=== PATIENT | male | born 1935 | race Caucasian/White ===

== ENCOUNTER 2016-07-24 08:14 | Outpatient (CLI) | payer MEDICARE, BC ==
[2012-05-23 09:22] VITALS: BP 148/75
== END 2016-07-24 08:15 ==
LOC: LAB 08:14
PROVIDERS: ATTEND Orthopaedic Surgery Adult Reconstructive Orthopaedic Surgery
DX: Z47.89 Encounter for other orthopedic aftercare (principal); Z96.642 Presence of left artificial hip joint; Z79.01 Long term (current) use of anticoagulants
CPT/HCPCS: 36415; 85610

== ENCOUNTER 2016-07-27 09:00 | Outpatient (CLI) | payer MEDICARE, BC ==
[2012-05-23 09:22] VITALS: BP 148/75
== END 2016-07-27 09:02 ==
LOC: LAB 09:00
PROVIDERS: ATTEND Orthopaedic Surgery Adult Reconstructive Orthopaedic Surgery
DX: Z47.89 Encounter for other orthopedic aftercare (principal); Z96.642 Presence of left artificial hip joint; Z79.01 Long term (current) use of anticoagulants; Z51.81 Encounter for therapeutic drug level monitoring
CPT/HCPCS: 36415; 85610

== ENCOUNTER 2016-07-30 07:11 | Outpatient (CLI) | payer MEDICARE, BC ==
[2012-05-23 09:22] VITALS: BP 148/75
== END 2016-07-30 07:12 ==
LOC: LAB 07:11
PROVIDERS: ATTEND Orthopaedic Surgery Adult Reconstructive Orthopaedic Surgery
DX: Z47.89 Encounter for other orthopedic aftercare (principal); Z96.642 Presence of left artificial hip joint; Z79.01 Long term (current) use of anticoagulants; Z51.81 Encounter for therapeutic drug level monitoring
CPT/HCPCS: 36415; 85610

== ENCOUNTER 2016-08-03 06:59 | Outpatient (CLI) | payer MEDICARE, BC ==
[2012-05-23 09:22] VITALS: BP 148/75
== END 2016-08-03 07:00 ==
LOC: LAB 06:59
PROVIDERS: ATTEND Orthopaedic Surgery Adult Reconstructive Orthopaedic Surgery
DX: Z51.81 Encounter for therapeutic drug level monitoring (principal); Z79.01 Long term (current) use of anticoagulants; Z47.89 Encounter for other orthopedic aftercare; Z96.642 Presence of left artificial hip joint
CPT/HCPCS: 36415; 85610

== ENCOUNTER 2016-08-06 08:37 | Outpatient (CLI) | payer MEDICARE, BC ==
[2012-05-23 09:22] VITALS: BP 148/75
== END 2016-08-06 08:40 ==
LOC: LAB 08:37
PROVIDERS: ATTEND Orthopaedic Surgery Adult Reconstructive Orthopaedic Surgery
DX: Z51.81 Encounter for therapeutic drug level monitoring (principal); Z79.01 Long term (current) use of anticoagulants; Z47.89 Encounter for other orthopedic aftercare; Z96.642 Presence of left artificial hip joint
CPT/HCPCS: 36415; 85610

== ENCOUNTER 2016-08-10 07:44 | Outpatient (CLI) | payer MEDICARE, BC ==
[2012-05-23 09:22] VITALS: BP 148/75
== END 2016-08-10 07:45 ==
LOC: LAB 07:44
PROVIDERS: ATTEND Orthopaedic Surgery Adult Reconstructive Orthopaedic Surgery
DX: Z51.81 Encounter for therapeutic drug level monitoring (principal); Z79.01 Long term (current) use of anticoagulants; Z47.89 Encounter for other orthopedic aftercare; Z96.642 Presence of left artificial hip joint
CPT/HCPCS: 36415; 85610

== ENCOUNTER 2016-08-14 09:01 | Outpatient (CLI) | payer MEDICARE, BC ==
[2012-05-23 09:22] VITALS: BP 148/75
== END 2016-08-14 09:02 ==
LOC: LAB 09:01
PROVIDERS: ATTEND Orthopaedic Surgery Adult Reconstructive Orthopaedic Surgery
DX: Z51.81 Encounter for therapeutic drug level monitoring (principal); Z47.89 Encounter for other orthopedic aftercare; Z96.642 Presence of left artificial hip joint; Z79.01 Long term (current) use of anticoagulants
CPT/HCPCS: 36415; 85610

== ENCOUNTER 2016-08-17 07:58 | Outpatient (CLI) | payer MEDICARE, BC ==
[2012-05-23 09:22] VITALS: BP 148/75
== END 2016-08-17 08:00 ==
LOC: LAB 07:58
PROVIDERS: ATTEND Orthopaedic Surgery Adult Reconstructive Orthopaedic Surgery
DX: Z51.81 Encounter for therapeutic drug level monitoring (principal); Z79.01 Long term (current) use of anticoagulants; Z47.89 Encounter for other orthopedic aftercare; Z96.642 Presence of left artificial hip joint
CPT/HCPCS: 36415; 85610

== ENCOUNTER 2016-08-24 07:19 | Outpatient (CLI) | payer MEDICARE, BC ==
[2012-05-23 09:22] VITALS: BP 148/75
== END 2016-08-24 07:20 ==
LOC: LAB 07:19
PROVIDERS: ATTEND Orthopaedic Surgery Adult Reconstructive Orthopaedic Surgery
DX: Z51.81 Encounter for therapeutic drug level monitoring (principal); Z79.01 Long term (current) use of anticoagulants; Z47.89 Encounter for other orthopedic aftercare; Z96.642 Presence of left artificial hip joint
CPT/HCPCS: 36415; 85610

== ENCOUNTER 2016-08-31 08:51 | Outpatient (CLI) | payer MEDICARE, BC ==
[2012-05-23 09:22] VITALS: BP 148/75
== END 2016-08-31 08:52 ==
LOC: LAB 08:51
PROVIDERS: ATTEND Orthopaedic Surgery Adult Reconstructive Orthopaedic Surgery
DX: Z51.81 Encounter for therapeutic drug level monitoring (principal); Z79.01 Long term (current) use of anticoagulants; Z47.89 Encounter for other orthopedic aftercare; Z96.642 Presence of left artificial hip joint
CPT/HCPCS: 36415; 85610

== ENCOUNTER 2016-09-07 08:19 | Outpatient (CLI) | payer MEDICARE, BC ==
[2012-05-23 09:22] VITALS: BP 148/75
== END 2016-09-07 08:20 ==
LOC: LAB 08:19
PROVIDERS: ATTEND Orthopaedic Surgery Adult Reconstructive Orthopaedic Surgery
DX: Z47.89 Encounter for other orthopedic aftercare (principal); Z96.642 Presence of left artificial hip joint; Z79.01 Long term (current) use of anticoagulants; Z51.81 Encounter for therapeutic drug level monitoring
CPT/HCPCS: 36415; 85610

== ENCOUNTER 2016-09-14 08:16 | Outpatient (CLI) | payer MEDICARE, BC ==
[2012-05-23 09:22] VITALS: BP 148/75
== END 2016-09-14 08:17 ==
LOC: LAB 08:16
PROVIDERS: ATTEND Orthopaedic Surgery Adult Reconstructive Orthopaedic Surgery
DX: Z51.81 Encounter for therapeutic drug level monitoring (principal); Z79.01 Long term (current) use of anticoagulants; Z47.89 Encounter for other orthopedic aftercare; Z96.642 Presence of left artificial hip joint
CPT/HCPCS: 36415; 85610